=== PATIENT | male | born 1990 | race African-American/Black ===

== ENCOUNTER 2017-10-23 06:35 | Emergency (ER) | payer SELFPAY ==
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
== END 2017-10-23 08:58 | disposition home or self-care (01) ==
LOC: ER 06:35
DX: M25.512 Pain in left shoulder (principal); M25.552 Pain in left hip
CPT/HCPCS: 73030-TC-LT; 73501; Z7502